=== PATIENT | male | born 1955 | race Hispanic/Latino ===

== ENCOUNTER 2017-12-30 04:54 | Emergency (ER) | payer BC ==
[2017-12-30] MEDS ORDERED: Ondansetron HCl/PF 4 MG/2 ML Vial ONE (05:13)
[2017-12-30 05:24] LABS: #Basophils 0.1 thou/uL (0.0-0.2); #Eosinphils 0.3 thou/uL (0.0-0.7); #Lymphocytes 2.4 thou/uL (1.20-3.40); #Neutrophils 8.2 thou/uL (1.40-6.50); %Basophils 1.2 % (0.0-1.0); %Eosinophils 2.2 % (0.0-10.0); %Lymphocytes 19.9 % (21.0-51.0); %Monocytes 8.5 % (0.0-10.0); %Neutrophils 68.3 % (42.0-75.0); Hemoglobin 17.2 g/dL (14.0-18.0); Mean Corpuscular HGB CONC 35.5 g/dL (32.0-36.0); Mean Corpuscular Hemoglobin 30.8 pg (27.0-31.0); Mean Corpuscular Volume 86.9 fl (80.0-94.0); Mean Platelet Volume 6.6 fL (7.4-10.4); Platelet Count 290 thou/uL (130-400); RBC Distribution Width 11.9 % (11.5-14.5); Red Blood Cell (RBC) Count 5.58 mill/uL (4.70-6.10)
[2017-12-30 05:39] LABS: ALT (SGPT) 25 U/L (8-55); AST (SGOT) 27 U/L (5-34); Albumin 4.1 g/dL (3.4-4.8); Alkaline Phosphatase 52 U/L (40-150); Anion Gap 13 mmol/L (10-20); BUN (Urea Nitrogen) 25 mg/dL (8.4-25.7); Bilirubin, Total 0.7 mg/dL (0.2-1.2); Calc. Creatinine Clearance 0 mL/min (70-130); Calcium 9.4 mg/dL (7.8-10.44); Carbon Dioxide 24 mmol/L (23-31); Chloride 105 mmol/L (98-107); Estimated GFR-MDRD 63; Globulin 2.8 g/dL (2.4-3.5); Glucose 126 mg/dL (80-115); Lipase 39 U/L (8-78); Potassium 4.1 mmol/L (3.5-5.1); Protein, Total 6.9 g/dL (5.8-8.1); Sodium 138 mmol/L (136-145)
[2017-12-30 05:48] LABS: Bilirubin Negative (Negative); Blood, Urine Negative (Negative); Clarity Clear (Clear); Glucose, Urine (Dipstick) Negative (Negative); Leukocyte Trace (Negative); Nitrite Negative (Negative); Protein, Urine (Dipstick) Negative (Neg-Trace); Specific Gravity, Urine 1.025 (1.005-1.030); Urobilinogen 0.2 mg/dL (0.2-1.0); pH, Urine 6.5 (5.0-9.0)
[2017-12-30 05:53] LABS: Bacteria/HPF None Seen HPF (None Seen); Hyaline Casts/LPF NONE SEEN LPF (0-3 Hyaline); RBC/HPF 0-3 HPF (0-3); Squamous Epithelial None Seen HPF (0-3); WBC/HPF 0-3 HPF (0-3)
[2017-12-30] MEDS ORDERED: Ketorolac Tromethamine 30 MG/ML VIAL ONE (06:07)
[2017-12-30] MEDS ORDERED: HYDROcodone/Acetaminophen 5/325 mg Tablet ONE (06:28)
--- NOTE | 2017-12-30 08:42 | CT ---
PRELIMINARY REPORT/[facility]/EMERGENTY AFTER-HOURS PROCEDURE CT Abdomen and Pelvis With Intravenous Contrast EXAM DATE/TIME: Exam ordered 12/30/2017 5:34 AM CLINICAL HISTORY: 62 years old, male; Pain; Abdominal pain; Patient HX: Pt presents with llq pain. Pt had episode of pa in one week ago that resolved in less than 24 hours. Pain returned tonight. He has nausea but no vomi ting. He reports burning with urination that began tonight. Pt denies fever, chills, change in bowel habits. Pt reports similar episode one year ago caused by diverticulitis. TECHNIQUE: Axial computed tomography images of the abdomen and pelvis with intravenous contrast. Coronal reforma tted images were created and reviewed. CONTRAST: 85 mL of [id number] administered intravenously. COMPARISON: No relevant prior studies available. FINDINGS: Lung bases: There is subpleural atelectasis of the dependent portions of the lungs. ABDOMEN: Liver: There are no focal liver lesions identified. Gallbladder and bile ducts: The gallbladder is normal. There is no evidence of biliary ductal dilatio n. No calcified stones. Pancreas: The pancreas appears normal. No ductal dilation. Spleen: The spleen is normal. Adrenals: The adrenal glands are normal. Kidneys and ureters: There is a 13 x 13 x 15 mm distal LEFT ureteral obstructing calculus with associ ated marked LEFT hydroureteronephrosis and perinephric stranding. The right kidney is normal. Stomach and bowel: The stomach is normal. The duodenum is unremarkable. No obstruction. No mucosal th ickening. Appendix: No findings to suggest acute appendicitis. PELVIS: Bladder: There is nonspecific bladder wall thickening. This may be related to incomplete distention. Reproductive: The prostate gland demonstrates nonspecific parenchymal calcifications. ABDOMEN and PELVIS: Intraperitoneal space: Normal. No free air. No significant fluid collection. Bones/joints: No acute fracture. No dislocation. Soft tissues: Normal. Vasculature: Normal. No abdominal aortic aneurysm. Lymph nodes: Normal. No enlarged lymph nodes. IMPRESSION: There is a 13 x 13 x 15 mm distal LEFT ureteral obstructing calculus with associated marked LEFT hydr oureteronephrosis and perinephric stranding. Thank you for allowing us to participate in the care of your patient. Dictated and Authenticated by: Carlos Quinonez MD 12/30/2017 6:12 AM Central Time ([place] & [place]) FINAL REPORT CT ABDOMEN AND PELVIS WITH IV CONTRAST PERFORMED ON AN EMERGENCY BASIS: DATE: 12/30/17 TIME: 0547 HOURS HISTORY: Left abdominal pain. FINDINGS: Findings agree with the preliminary report by [facility]. There is high grade obstruction at a large distal left ureteral calculus measuring up to 1.5 cm greatest diameter. POS: [facility]
== END 2017-12-30 06:38 | disposition home or self-care (01) ==
LOC: SCSER 04:54
DX: N13.2 Hydronephrosis with renal and ureteral calculous obstruction (principal)
CPT/HCPCS: 74177; 80053; 81003; 81015; 83690; 85025; 87086; 96374; 96375; J1885; J2405

== ENCOUNTER 2017-12-31 10:10 | Day surgery (SDC) | payer BC ==
[2017-12-31 11:18] LABS: Bilirubin Negative (Negative); Blood, Urine Negative (Negative); Clarity CLEAR (Clear); Glucose, Urine (Dipstick) Negative (Negative); Leukocyte Trace (Negative); Nitrite Negative (Negative); Protein, Urine (Dipstick) Negative (Neg-Trace); Specific Gravity, Urine 1.021 (1.002-1.036); Urobilinogen 0.2 mg/dL (0.2-1.0); pH, Urine 5.5 (5.0-9.0)
[2017-12-31 11:21] LABS: Bacteria/HPF None Seen HPF (None Seen); Hyaline Casts/LPF 0-3 HYALINE CAST LPF (0-3 Hyaline); Pathc Cast-AUWi Flag 0.29 (0-2.49); Squamous Epithelial 0-3 HPF (0-3)
[2017-12-31 11:31] LABS: INR-International Normal Ratio 0.9; Prothrombin Time 11.7 SEC (12.0-14.7)
[2017-12-31] MEDS ORDERED: Levofloxacin 500 mg/D5W 100 ml Premix Bag ONE (11:45)
[2017-12-31] MEDS ORDERED: Iothalamate Meglumine 60% 50 ML VIAL FS ONE (13:08)
--- NOTE | 2017-12-31 13:25 | RAD ---
AP ABDOMINAL RADIOGRAPH: Date: 12-31-17 History: Left lower quadrant abdominal pain. Pre op. Comparison: CT abdomen 12-30-17 FINDINGS: Bowel gas pattern is nonspecific with a small to moderate amount of retained fecal material seen thro ughout the ascending and transverse colon. Calcifications overlie the region of the prostate gland. T here is a large calcification seen in the left hemipelvis shown to represent a large distal ureteral calculus on recent CT scan exam. No additional suspicious calcifications are seen. Mild degenerative changes are noted in the spine. IMPRESSION: Large distal left ureteral calculus. POS: [facility]
[2017-12-31] MEDS ORDERED: Fentanyl 100 MCG/2 ML VIAL ONE (13:43)
[2017-12-31] MEDS ORDERED: Midazolam HCl 2 mg/2 ml Vial ONE (13:43)
[2017-12-31] MEDS ORDERED: Phenazopyridine HCl 97.5 MG TABLET ONE ×2 (14:57)
--- NOTE | 2017-12-31 14:59 | OP ---
DATE OF PROCEDURE: 12/31/2017 PREOPERATIVE DIAGNOSES: 1. A 62-year-old male with history of 1.5 cm left distal ureteral calculi just proximal to the intra mural ureter with severe hydroureteronephrosis. 2. Benign prostatic hypertrophy. POSTOPERATIVE DIAGNOSES: 1. A 62-year-old male with history of 1.5 cm left distal ureteral calculi just proximal to the intra mural ureter with severe hydroureteronephrosis. 2. Benign prostatic hypertrophy. PROCEDURES PERFORMED: Cystoscopy, left retrograde, 6 x 24 double-J ureteral stent placement with dis cony tail in situ. SURGEON: Aide Guillen D.O. ANESTHESIA: LMA. COMPLICATIONS: None apparent. DISPOSITION: To recovery room in stable condition. INTRAOPERATIVE FINDINGS: 1. No evidence of urethral stricture. 2. 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 3. Bladder trabeculation consistent with chronic outlet obstruction. 4. High grade obstruction of the left kidney due to large distal ureteral calculi. INDICATIONS FOR PROCEDURE AND HISTORY: Mr. Evans is a 62-year-old male self-referred as he present ed to the emergency room the day before due to left flank pain. He was found to have a very large le ft distal ureteral calculi with severe hydroureteronephrosis. He is requiring pain medication around -the-clock and desired for me to provide care. The patient has noticed decreased urinary caliber; ho wever, this has been relatively recent. Denies history of STDs. CT does demonstrate significant BPH component with intravesical median lobe component. He is without evidence of urinary retention and presents today for cystoscopy stent with the full understanding that he will require staged intervent ion of his large left distal ureteral calculi. Risks and complications including, but not limited to , bleeding, pain, infection, injury due to adjacent organs, urosepsis, bladder renal injury was revie wed and they desired to proceed without reservation. DESCRIPTION OF THE PROCEDURE: After an informed consent was signed, the patient was taken to the ope rating room, placed in a dorsal lithotomy position with the genital area prepped and draped in the [facility] surgical sterile fashion. A 21-Faroese cystoscope was utilized for cystoscopy. Bilateral LUANA hos e, SCDs, and broad-spectrum antibiotics were provided. The anterior urethra was within normal limits with no evidence of urethral stricture. Prostatic urethra was entered demonstrating microcalcificat ion of the prostatic mucosa consistent with chronic prostatitis. There was moderate obstruction of t he prostate with an intravesical median lobe component. Upon entering the bladder, there were modera te trabeculation consistent with chronic outlet obstruction. There was mild bladder stone sediment n ot warranting treatment, likely passage of a stone sloughing, there was no evidence of large calculi, bladder tumors. The UO's were unable to be identified with a 30-degree lens, therefore I did transi tion to a 70-degree lens. The UO's were then identified, which was just proximal to the reflection o f the intravesical median lobe. As we identified the ureteral orifice with the 70 degree lens, I did transition back to a 30-degree lens as I was unable to pass a wire or an open-ended catheter with a 70 degree lens. We were able to identify the left UO as it was staged with a 70-degree lens; however , this required some pressure on the intravesical median lobe to directly visualize the UO. This occ urred without significant trauma to the intravesical median lobe component with minimal oozing. The UO was intubated with an open-ended catheter and a retrograde pyelogram performed demonstrating a lar ge left distal ureteral calculi. We were unable to pass a 0.35 sensor wire initially. Therefore, a 1:1 diluted contrast with viscous lidocaine was utilized to lubricate the region. We were able to ne gotiate the 0.35 sensor wire just proximal to this. An open-ended catheter was passed. There was so me redundancy due to significant ureteral dilatation. However, we negotiated the wire up into the le ft upper pole without significant issues. A 6 x 24 double-J ureteral stent and subsequently passed. A small distal tail was left in situ. Bladder was completely emptied and he tolerated the procedure well. As his urine culture is pending, he is discharged with ciprofloxacin for 7 days. He will be provided Flomax which he will continue to take every day given trilobar hyperplasia of the prostate, #30, 6 refills provided, AZO p.r.n. Colace, p.r.n., [place] 5/325 #50 provided. He will follow up with me tomorrow to retirement plan counselor regarding staged ureteroscopy, laser lithotripsy at a later date.
--- NOTE | 2017-12-31 16:03 | RAD ---
RETROGRADE PYELOGRAM: Date: 12/31/17 HISTORY: Left ureteral stent placement. FINDINGS: A series of four images show placement of a left ureteral stent. There is a large distal left uretera l calculus noted, measuring 11.0 mm. IMPRESSION: Placement of a left ureteral stent with distal left ureteral calculus. POS: [facility]
[2017-12-31] MEDS ORDERED: PROPOFOL 200 MG/20 ML VIAL ONE (16:27)
[2017-12-31] MEDS ORDERED: PHENYLEPHRINE-NS 100 MCG/ML 10 ML SYRINGE ONE (16:27)
[2017-12-31] MEDS ORDERED: ePHEDrine/0.9% NaCl/PF SYRINGE 50 mg/10 ml ONE (16:27)
[2017-12-31] MEDS ORDERED: Ondansetron HCl/PF 4 MG/2 ML Vial ONE (16:27)
[2017-12-31] MEDS ORDERED: Lidocaine 1% PF 5 ML VIAL ONE (16:27)
== END 2017-12-31 16:00 | disposition home or self-care (01) ==
LOC: SDC 10:10
PROVIDERS: ATTEND Urology
PROC: 0T778DZ Dilation of Left Ureter with Intraluminal Device, Via Natural or Artificial Opening Endoscopic (ICD-10-PCS; principal; 2017-12-31)
DX: N13.2 Hydronephrosis with renal and ureteral calculous obstruction (principal); N40.0 Benign prostatic hyperplasia without lower urinary tract symptoms; Z98.890 Other specified postprocedural states
CPT/HCPCS: 36415; 74018; 74420; 81001; 85610; 85730; 87086; 93005; 93010; C1758; C1769; J1956; J2001; J2250; J2405; J2704; J3010; Q9961

== ENCOUNTER 2018-01-13 07:26 | Day surgery (SDC) | payer BC ==
[2018-01-10 09:58] VITALS: BMI 24.3
[2018-01-13] MEDS ORDERED: Levofloxacin 500 mg/D5W 100 ml Premix Bag ONE (08:37)
[2018-01-13] MEDS ORDERED: Iothalamate Meglumine 60% 50 ML VIAL FS ONE ×2 (08:50→11:11)
[2018-01-13] MEDS ORDERED: Ondansetron HCl/PF 4 MG/2 ML Vial ONE (08:59)
[2018-01-13] MEDS ORDERED: Fentanyl 100 MCG/2 ML VIAL ONE (08:59)
[2018-01-13] MEDS ORDERED: Midazolam HCl 2 mg/2 ml Vial ONE (08:59)
--- NOTE | 2018-01-13 09:15 | RAD ---
KUB: Date: 01/13/18 INDICATION: Preop examination. COMPARISON: Prior exam dated 12/31/17. FINDINGS: Large left-sided distal UVJ calculus is unchanged in position. Left-sided ureteral stent is unchanged in position. Left-sided calcifications are seen within the lower pelvis. Bowel gas pattern is unobst ructed. No acute osseous abnormality is evident. IMPRESSION: Stable left ureteral stent and stable left distal ureteral stone. POS: [facility]
[2018-01-13] MEDS ORDERED: Phenazopyridine HCl 97.5 MG TABLET ONE (11:29)
--- NOTE | 2018-01-13 12:10 | RAD ---
RETROGRADE IVP: Comparison: 01-13-18 at 0817 hours. FINDINGS: First submitted image demonstrates the large left ureteral calculus and left ureteral stent as seen o n the comparison exam. The stone is unchanged in position. Subsequent images demonstrate removal of t he previously seen distal left ureteral calculus with stable positioning of the left ureteral stent. IMPRESSION: 1. Interval removal of the left distal ureteral calculus. 2. Left ureteral stent remains in place and projects in the expected position. POS: [facility]
--- NOTE | 2018-01-13 12:24 | OP ---
DATE OF PROCEDURE: 01/13/2018 PREOPERATIVE DIAGNOSES: 1. A 52-year-old male with history of large left distal ureteral calculi measuring 1.9 x 9 mm. 2. Trilobar hyperplasia of the prostate. 3. Elevated PSA of 4.1. POSTOPERATIVE DIAGNOSES: 1. A 52-year-old male with history of large left distal ureteral calculi measuring 1.9 x 9 mm. 2. Trilobar hyperplasia of the prostate. 3. Elevated PSA of 4.1. PROCEDURE: Cystoscopy, left 6 x 24 double-J ureteral stent exchange with distal tail in situ, rigid ureteroscopy, laser lithotripsy, basket extraction. SURGEON: Dr. Aide Guillen ANESTHESIA: General. COMPLICATIONS: None apparent. DISPOSITION: To recovery room in stable condition. SPECIMEN: Left ureteral stone fragments for chemical analysis. INTRAOPERATIVE FINDINGS: 1. As previously noted large left distal ureteral calculi. 2. Trilobar hyperplasia of the prostate with moderate obstruction. INDICATIONS FOR THE PROCEDURE AND HISTORY: Mr. Evans is a 52-year-old male, self-referred for history of large left distal ureteral calculi. CT and KUB was obtained demonstrating 1.9 x 9 mm left distal ureteral calculi with no prior history of kidney stones. Previous stent placement was very challenging due to intravesical median lobe and his ureteral orifices were difficult to identify, they were only visualized with 70-degree lens as it was close to the reflection of the prostatic mucosa. He presents today for ureteroscopy, laser lithotripsy. Risks and complications of the procedure was reviewed with him in detail including, but not limited to, bleeding, pain, infection, injury to adjacent organs, urosepsis, stricture formation, possible secondary procedure. I also discussed with patient regarding possibility of a channel TURP if we are unable to access the stone due to a component of intravesical median lobe. All questions were answered to his satisfaction and he desired to proceed. DESCRIPTION OF THE PROCEDURE: After an informed consent is signed, the patient is taken to the operating room, placed in a dorsal lithotomy position with the genital area prepped and draped in the usual surgical sterile fashion. Bilateral LUANA hose, SCDs, and broad-spectrum antibiotics were provided. A 21 Armenian cystoscope was utilized for cystoscopy, which again demonstrated normal anterior urethra. The prostatic urethra was entered demonstrating trilobar hyperplasia with moderate obstruction with intravesical median lobe. Again, the UO's are close to the reflection of the prostatic mucosa and the stent was visualized. The stent was removed to the level of the meatus and a 0.35 sensor wire was passed through the stent into the level of the left upper pole. With the wire secured, we passed a rigid ureteroscope. The stone was engaged which demonstrated bullous edema of the area of the stone consistent with an obstructing embedded ureteral stone. The stone was able to be visualized upon gentle manipulation of the ureteroscope in which was directly engaged. It was very large and dense in nature consistent with the CT and KUB finding. We used a 365 micron laser fiber at a setting of dust setting to dust the stone into tiny pieces. Majority of the stone was fragmented into dust-like debris. At the end of the procedure, there were minute stone debris that needed to be basket extracted. The stone fragments that were left were approximately 3-4 mm in size and these were basket extracted atraumatically with a 0 tip nitinol basket. The stones were dropped to the level of the bladder and we evacuated all the stone debris amendable to be basket extracted. There were minute dust- like stone debris area just proximal to where the stone had been obstructing the ureter. These were too small to basket or laser and he will most likely pass these. At this time, a 6 x 24 double-J ureteral stent was passed through the working wire and left in situ with distal tail left. The bladder was then Ellik evacuated, evacuating the stone debris. There were some stone fragments difficult to the Ellik evacuate therefore, I did grab these with endoscopic graspers. He tolerated the procedure well. Minimal oozing from the prostate was noted. He tolerated the procedure well and transported to the recovery room in stable condition. He will follow up with me next for cystoscopy stent pull under local. A KUB is advised 1 hour prior to the appointment. He is discharged with ciprofloxacin for 5 days with 1 dose taken prior to stent pull, AZO, [place] 5/325 #50, Flomax #30 with refills, Colace provided. Pending convalescence, I will work up his elevated PSA that was obtained approximately 2 years ago. LEONIDAS
== END 2018-01-13 12:30 | disposition home or self-care (01) ==
LOC: SDC 07:26
PROVIDERS: ATTEND Urology
PROC: 0TF78ZZ Fragmentation in Left Ureter, Via Natural or Artificial Opening Endoscopic (ICD-10-PCS; principal; 2018-01-13)
PROC: 0T778DZ Dilation of Left Ureter with Intraluminal Device, Via Natural or Artificial Opening Endoscopic (ICD-10-PCS; principal; 2018-01-13)
DX: N20.1 Calculus of ureter (principal); N40.1 Benign prostatic hyperplasia with lower urinary tract symptoms; R39.11 Hesitancy of micturition; R97.20 Elevated prostate specific antigen [PSA]; N28.9 Disorder of kidney and ureter, unspecified; Z79.891 Long term (current) use of opiate analgesic; Z79.899 Other long term (current) drug therapy; Z98.890 Other specified postprocedural states
CPT/HCPCS: 74018; 74019; 74420; 82365; 88300; C1758; C1769; J1956; J2250; J2405; J3010; Q9961

== ENCOUNTER 2018-01-23 06:59 | Outpatient (CLI) | payer BC ==
--- NOTE | 2018-01-23 07:45 | RAD ---
ABDOMEN 1 VIEW: HISTORY: Urinary tract calcifications. COMPARISON: 01/13/18. FINDINGS: Bowel gas pattern nonspecific. Left ureteral stent in place. Oval calcification of the distal left ureter on the previous studies is no longer visible. Dystrophic calcification of the prostate gland is again demonstrated. IMPRESSION: Interval fragmentation distal left ureteral calculus, no longer visualized. POS: [facility]
== END 2018-01-23 07:00 | disposition home or self-care (01) ==
LOC: RAD 06:59
PROVIDERS: ATTEND Urology
DX: N20.1 Calculus of ureter (principal)
CPT/HCPCS: 74018

== ENCOUNTER 2025-09-10 11:31 | Observation (INO) | payer MEDICARE, OTHER ==
[2025-09-10 12:02] LABS: #Basophils 0.09 10x3/uL (0.0-0.2); #Eosinophils 0.16 10x3/uL (0.0-0.7); #Monocytes 0.69 10x3/uL (0.11-0.59); #Neutrophils 4.22 10x3/uL (1.40-6.50); %Basophils 1.2 % (0.0-1.0); %Eosinophils 2.1 % (0.0-10.0); %Lymphocytes 30.9 % (21.0-51.0); %Monocytes 9.2 % (0.0-10.0); %Neutrophils 56.3 % (42.0-75.0); Hematocrit 50.1 % (42.0-52.0); Hemoglobin 16.2 g/dL (14.0-18.0); Mean Corpuscular Hemoglobin 28.4 pg (27.0-31.0); Mean Corpuscular Volume 87.9 fL (78.0-98.0); Platelet Count 257 10x3/uL (130-400); Red Blood Cell (RBC) Count 5.70 mill/uL (4.70-6.10); White Blood Cell (WBC) Count 7.50 10x3/uL (4.8-10.8)
[2025-09-10 12:19] LABS: ALT (SGPT) 26 U/L (Less than 45); AST (SGOT) 29 U/L (11-34); Albumin 4.2 g/dL (3.1-4.5); Alkaline Phosphatase 53 U/L (40-110); Anion Gap 10 mmol/L (10-20); BUN (Urea Nitrogen) 19 mg/dL (8.4-25.7); Bilirubin, Total 0.8 mg/dL (0.3-1.2); Calc. Creatinine Clearance 0 mL/min (70-130); Calcium 9.5 mg/dL (7.8-10.44); Carbon Dioxide 27 mmol/L (23-31); Chloride 106 mmol/L (98-107); Globulin 2.9 g/dL (2.4-3.5); Glucose 104 mg/dL (80-115); Magnesium 2.0 mg/dL (1.6-2.6); Potassium 4.1 mmol/L (3.5-5.1); Sodium 139 mmol/L (136-145)
[2025-09-10] MEDS ORDERED: Ondansetron PF 4 MG/2 ML Vial IVP PRN (14:43)
[2025-09-10] MEDS ORDERED: Senokot S 8.6-50 MG TAB PO PRN (14:43)
[2025-09-10] MEDS ORDERED: Acetaminophen 325 MG TAB PO PRN (14:43)
[2025-09-10] MEDS ORDERED: Melatonin 3 MG TAB PO PRN (14:43)
[2025-09-10 14:53] VITALS: BMI 25.9
[2025-09-11 05:40] LABS: #Basophils 0.10 10x3/uL (0.0-0.2); #Eosinophils 0.38 10x3/uL (0.0-0.7); #Monocytes 0.82 10x3/uL (0.11-0.59); #Neutrophils 4.25 10x3/uL (1.40-6.50); %Basophils 1.2 % (0.0-1.0); %Eosinophils 4.4 % (0.0-10.0); %Lymphocytes 35.7 % (21.0-51.0); %Monocytes 9.4 % (0.0-10.0); %Neutrophils 49.0 % (42.0-75.0); Hematocrit 46.4 % (42.0-52.0); Hemoglobin 15.3 g/dL (14.0-18.0); Mean Corpuscular Hemoglobin 28.8 pg (27.0-31.0); Mean Corpuscular Volume 87.4 fL (78.0-98.0); Platelet Count 252 10x3/uL (130-400); Red Blood Cell (RBC) Count 5.31 mill/uL (4.70-6.10); White Blood Cell (WBC) Count 8.68 10x3/uL (4.8-10.8)
[2025-09-11 05:58] LABS: Anion Gap 13 mmol/L (10-20); BUN (Urea Nitrogen) 23 mg/dL (8.4-25.7); Calc. Creatinine Clearance 66 mL/min (70-130); Calcium 8.9 mg/dL (7.8-10.44); Carbon Dioxide 22 mmol/L (23-31); Chloride 110 mmol/L (98-107); Glucose 103 mg/dL (80-115); Potassium 4.1 mmol/L (3.5-5.1); Sodium 141 mmol/L (136-145)
[2025-09-11] MEDS: Magnesium 2 GM/50 ML(in water) 2 GM in Premix 1 BAG IVPB SCH (11:09)
[2025-09-11 11:28] VITALS: BP 120/75; TEMP 97.4
== END 2025-09-11 16:03 | disposition home or self-care (01) ==
LOC: ERS 11:31 → OBS 13:28
PROVIDERS: ADMIT Hospitalist; ATTEND Internal Medicine
DX: R00.1 Bradycardia, unspecified (principal); I12.9 Hypertensive chronic kidney disease with stage 1 through stage 4 chronic kidney disease, or unspecified chronic kidney disease; N18.2 Chronic kidney disease, stage 2 (mild); E78.5 Hyperlipidemia, unspecified; N40.0 Benign prostatic hyperplasia without lower urinary tract symptoms; E83.42 Hypomagnesemia
CPT/HCPCS: 71045; 80048; 83735; 84484; 85025; 93005; 93306; 99285; G0378 ×3; J3475; 36415; 80053; 84443; 93010